=== PATIENT | female | born 2000 | race Caucasian/White ===

== ENCOUNTER 2025-06-09 23:33 | Emergency (ER) | payer OTHER ==
[~2025-06-09] VITALS: Ht 165.1 cm; Wt 80.6 kg
[~2025-06-09 23:33] MED LIST: ANTIBIOTIC28.4 GM TOP; HYDROCODON-ACE1 EA10 PO; LIDOCAINE35.44 GM TOP; ONDANSETRON ODT4 MG PO
[2025-06-09] MEDS ORDERED: KETOROLAC TROMETHAMINE 60 MG/2 ML VIAL IM ONE (23:45)
[2025-06-09] MEDS ORDERED: CYCLOBENZAPRINE HCL 10 MG TAB PO ONE (23:45)
[2025-06-10] MEDS ORDERED: HYDROCODON-ACE1 EA10 PO (00:33)
[2025-06-10] MEDS ORDERED: HYDROCODONE BIT/ACETAMINOPHEN 5/325 MG 1 TAB HOME.PACK PO ONE (00:45)
== END 2025-06-10 01:04 | disposition home or self-care (01) ==
LOC: ED 23:33
DX: S20.212A Contusion of left front wall of thorax, initial encounter (principal); V89.2XXA Person injured in unspecified motor-vehicle accident, traffic, initial encounter; Z88.0 Allergy status to penicillin; Z88.8 Allergy status to other drugs, medicaments and biological substances
CPT/HCPCS: 71101; 96372; 99283-25; A9270; J1885